=== PATIENT | female | born 1980 | race Caucasian/White ===

== ENCOUNTER 2018-01-30 03:31 | Emergency (ER) | payer MEDICAID ==
[~2018-01-30] VITALS: Ht 170.2 cm; Wt 98.2 kg
[~2018-01-30 03:31] MED LIST: HYDR-4383 PO; IBUP-1984 PO; KETO10TA2 PO; LACT10SO PO; MECL12.5 PO
[2018-01-30] MEDS ORDERED: normal saline 1000ML IV soln IVB ONE (03:55)
[2018-01-30] MEDS ORDERED: ondansetron/PF 4mg/2ml inj IV ONE (03:55)
[2018-01-30] MEDS ORDERED: morphine 4 MG/ML inj SYRINge IV PRN (03:55)
[2018-01-30] MEDS ORDERED: ketorolac trometh. 30mg/ml inj. IV STA (04:03)
[2018-01-30 04:07] LABS: CLARITY,URINE SLIGHTLY CLOUDY (Clear); COLOR,URINE YELLOW (Yellow); GLUCOSE, URINE NEGATIVE (Neg); KETONES,URINE NEGATIVE (Neg); LEUKOCYTE ESTERASE ,URINE NEGATIVE (Neg); NITRITES, URINE NEGATIVE (Neg); OCCULT BLOOD,URINE NEGATIVE (Neg); PROTEIN,URINE TRACE mg/dl (Neg); UROBILINOGEN,URINE 0.2 E.U/dL (0.2-1.0)
[2018-01-30 04:08] LABS: URINE HCG NEGATIVE (NEG)
[2018-01-30 04:09] LABS: BASOPHILS # (AUTO) 0.1 X10'3 (0-0.2); BASOPHILS % (AUTO) 0.8 % (0-1); EOSINOPHILS # (AUTO) 0.1 X10'3 (0-0.9); EOSINOPHILS % (AUTO) 1.4 % (0-6); HEMATOCRIT 34.6 % (35.0-45.0); HEMOGLOBIN 11.2 g/dl (12.0-16.0); LYMPHOCYTES # (AUTO) 3.3 X10'3 (1.1-4.8); LYMPHOCYTES % (AUTO) 39.6 % (21-51); MEAN CORPUSCULAR HEMOGLOBIN 25.1 PG (27.0-31.0); MEAN CORPUSCULAR HGB CONC 32.2 % (33.0-36.5); MEAN CORPUSCULAR VOLUME 78.1 FL (78-98); MEAN PLATELET VOLUME 7.9 FL (7.4-10.4); MONOCYTES # (AUTO) 0.5 X10'3 (0-0.9); MONOCYTES % (AUTO) 5.7 % (2-12); NEUTROPHILS # (AUTO) 4.4 X10'3 (1.8-7.7); NEUTROPHILS % (AUTO) 52.5 % (42-75); PLATELET COUNT 341 X10'3 (140-440); RED BLOOD COUNT 4.44 X10'6 (4.20-5.60); RED CELL DISTRIBUTION WIDTH 15.6 % (11.5-14.5); WHITE BLOOD COUNT 8.4 X10'3 (4.5-11.0)
[2018-01-30 04:14] LABS: UA COLLECTION TYPE CLN CATCH MIDSTREAM
[2018-01-30 04:17] LABS: BACTERIA,URINE 1+ /HPF (Neg); MUCUS STRANDS MANY /LPF (Neg); RBC,URINE 0-2 /HPF (0-2); SQUAMOUS EPITHELIAL CELL,UR MANY /LPF (FEW)
[2018-01-30 04:27] LABS: PROTHROMBIN TIME 10.5 SECONDS (9.0-12.0)
[2018-01-30 04:31] LABS: ALANINE AMINOTRANSFERASE 33 U/L (12-78); ALBUMIN 3.7 G/DL (3.4-5.0); ALBUMIN/GLOBULIN RATIO 0.8 (1.1-1.5); ALKALINE PHOSPHATASE 94 IU/L (46-116); ANION GAP 11 (8-16); ASPARTATE AMINO TRANSFERASE 17 U/L (10-37); BILIRUBIN,TOTAL 0.2 MG/DL (0.1-1.0); BLOOD UREA NITROGEN 15 MG/DL (7-18); CALCIUM 8.8 MG/DL (8.5-10.1); CHLORIDE 106 MMOL/L (99-107); GLUCOSE 106 MG/DL (70-104); LIPASE 120 U/L (73-393); POTASSIUM 3.6 MMOL/L (3.5-5.1); SODIUM 140 MMOL/L (135-145); TOTAL CARBON DIOXIDE 23.3 MMOL/L (24-32); TOTAL PROTEIN 8.1 G/DL (6.4-8.2); eGFR > 90 ML/MIN
[2018-01-30 05:30] VITALS: BP 121/66
[2018-01-30] MEDS ORDERED: CIPR-230 PO (05:56)
== END 2018-01-30 06:08 | disposition home or self-care (01) ==
LOC: ER 03:32
DX: R10.2 Pelvic and perineal pain (principal); N39.0 Urinary tract infection, site not specified; Z88.2 Allergy status to sulfonamides; Z79.899 Other long term (current) drug therapy; Z56.0 Unemployment, unspecified
CPT/HCPCS: 36415; 76856; 80053; 81001; 81025; 83690; 85025; 85610; 96374; 96375; 99285; J1885; J2405; J2270

== ENCOUNTER 2019-03-16 21:24 | Emergency (ER) | payer MEDICAID ==
[~2019-03-16] VITALS: Ht 170.2 cm; Wt 104.5 kg
[2019-03-16] MEDS ORDERED: DOXY100C2 PO (22:39)
[2019-03-16] MEDS ORDERED: CEPH500C5 PO (22:39)
[2019-03-16] MEDS ORDERED: ketorolac tromethamine 15mg/ml inj. IM ONE (22:40)
[2019-03-16 23:19] VITALS: BP 158/92
== END 2019-03-16 23:32 | disposition home or self-care (01) ==
LOC: ER 21:25
DX: L03.211 Cellulitis of face (principal); Z88.2 Allergy status to sulfonamides; Z79.2 Long term (current) use of antibiotics; Z79.899 Other long term (current) drug therapy; Z56.0 Unemployment, unspecified
CPT/HCPCS: 96372; 99283; J1885

== ENCOUNTER 2021-04-02 20:24 | Emergency (ER) | payer MEDICAID ==
[~2021-04-02] VITALS: Ht 170.2 cm; Wt 96.2 kg
[~2021-04-02 20:24] MED LIST changes: -LACT10SO PO; +LACT10SO3 PO
[2021-04-02 21:15] VITALS: BP 162/101
--- NOTE | 2021-04-03 03:50 | NUR ---
Unable to complete visual accuity. Pt wears prescription lenses and does not have them with her. Also patient stated that she could not open her eyes long enough to read all the letters.
[2021-04-03] MEDS ORDERED: proparacaine 0.5% ophthalmic drops 15ml EACHEYE ONE (05:05)
--- NOTE | 2021-04-03 06:33 | NUR ---
DR. MELGAR AT BEDSIDE FOR ED EVAL.
[2021-04-03] MEDS ORDERED: OFLO5DRO EACHEYE (07:46)
== END 2021-04-03 08:04 | disposition home or self-care (01) ==
LOC: ER 20:25
DX: S05.02XA Injury of conjunctiva and corneal abrasion without foreign body, left eye, initial encounter (principal); S05.01XA Injury of conjunctiva and corneal abrasion without foreign body, right eye, initial encounter; J34.89 Other specified disorders of nose and nasal sinuses; R09.89 Other specified symptoms and signs involving the circulatory and respiratory systems; Z56.0 Unemployment, unspecified; Z88.2 Allergy status to sulfonamides; Z79.899 Other long term (current) drug therapy; Z79.2 Long term (current) use of antibiotics; X58.XXXA Exposure to other specified factors, initial encounter; Y93.89 Activity, other specified; Y92.89 Other specified places as the place of occurrence of the external cause; Y99.8 Other external cause status
CPT/HCPCS: 99283

== ENCOUNTER 2024-01-09 11:45 | Emergency (ER) | payer MEDICAID ==
[~2024-01-09] VITALS: Ht 170.2 cm; Wt 106.4 kg
[2024-01-09 11:50] VITALS: BP_DIAS 99; O2SAT 99
[2024-01-09] MEDS ORDERED: HYDR-3965 PO ×2 (12:43→13:43)
[2024-01-09] MEDS ORDERED: VALA100031 PO (12:43)
[2024-01-09] MEDS ORDERED: GABA600T13 PO (12:43)
[2024-01-09 13:19] VITALS: PULSE 80; RESP 16; TEMP 98.4
== END 2024-01-09 13:27 | disposition home or self-care (01) ==
LOC: ER 11:45
DX: B02.29 Other postherpetic nervous system involvement (principal); Z88.2 Allergy status to sulfonamides; Z79.899 Other long term (current) drug therapy; Z88.8 Allergy status to other drugs, medicaments and biological substances
CPT/HCPCS: 99283